=== PATIENT | male | born 1930 | race Caucasian/White ===

== ENCOUNTER 2018-08-27 19:45 | Emergency (ER) | payer OTHER ==
[2018-08-27 20:30] LABS: #Basophils 0.1 thou/uL (0.0-0.2); #Lymphocytes 0.2 thou/uL (1.20-3.40); #Monocytes 0.7 thou/uL (0.11-0.59); #Neutrophils 12.2 thou/uL (1.40-6.50); %Basophils 0.4 % (0.0-1.0); %Eosinophils 0.1 % (0.0-10.0); %Lymphocytes 1.2 % (21.0-51.0); %Monocytes 5.5 % (0.0-10.0); %Neutrophils 92.9 % (42.0-75.0); Mean Corpuscular HGB CONC 31.1 g/dL (32.0-36.0); Mean Corpuscular Hemoglobin 28.2 pg (27.0-31.0); Mean Corpuscular Volume 90.7 fL (78.0-98.0); Mean Platelet Volume 6.6 fL (7.4-10.4); Platelet Count 246 thou/uL (130-400); RBC Distribution Width 13.3 % (11.5-14.5); Red Blood Cell (RBC) Count 3.17 mill/uL (4.70-6.10); White Blood Cell (WBC) Count 13.1 thou/uL (4.8-10.8)
[2018-08-27 20:52] LABS: ALT (SGPT) 12 U/L (8-55); AST (SGOT) 20 U/L (5-34); Albumin 2.7 g/dL (3.4-4.8); Alkaline Phosphatase 104 U/L (40-150); Anion Gap 15 mmol/L (10-20); BUN (Urea Nitrogen) 47 mg/dL (8.4-25.7); Bilirubin, Total 0.6 mg/dL (0.2-1.2); Calc. Creatinine Clearance 0 mL/min (70-130); Calcium 7.7 mg/dL (7.8-10.44); Carbon Dioxide 19 mmol/L (23-31); Chloride 106 mmol/L (98-107); Estimated GFR-MDRD 18; Glucose 126 mg/dL (83-110); Potassium 4.3 mmol/L (3.5-5.1); Protein, Total 5.7 g/dL (5.8-8.1); Sodium 136 mmol/L (136-145)
[2018-08-27] MEDS ORDERED: Sodium Chloride 0.9% 100 ML ONE (21:33)
[2018-08-27] MEDS ORDERED: cefTRIAXone\\ROCEPHIN 1 GM VIAL ONE (21:33)
--- NOTE | 2018-08-27 21:38 | RAD ---
CHEST ONE VIEW 08/27/18 HISTORY: Dyspnea. FINDINGS: No comparison. The cardiac silhouette is magnified by projection. Pulmonary vasculature is unremarkab le. Mediastinum is midline with postoperative changes and aortic calcification. Bibasilar parenchymal opacities are present, partially obscuring the left hemidiaphragm. Upper lobes are free of infiltrate. No pneumothorax. shelter monitor leads overlie the chest. IMPRESSION: Bibasilar infiltrates. Chronicity and cause are not evident. Clinical correlation regarding other sig ns and symptoms of bibasilar pneumonitis is required. Please consider close radiographic followup wit h upright PA and lateral views of the chest. Atherosclerosis. POS: H
[2018-08-27] MEDS ORDERED: Azithromycin 500 MG in Sodium Chloride 0.9% 250 ML 250 ML IVPB SCH (22:30)
--- NOTE | 2018-08-29 22:30 | EKG ---
Test Reason : CP Blood Pressure : / mmHG Vent. Rate : 085 BPM Atrial Rate : 085 BPM P-R Int : 126 ms QRS Dur : 084 ms QT Int : 404 ms P-R-T Axes : 075 013 069 degrees QTc Int : 480 ms Normal sinus rhythm Prolonged QT Abnormal ECG Confirmed by COLLEEN LUIS D.O. ([id number]), brands editor SUKI MACEDO ([id number] on 08/29/2018 10:29:35 PM Referred By: Confirmed By:COLLEEN LUIS D.O.
== END 2018-08-28 00:50 | disposition short-term general hospital (02) ==
LOC: ERS 19:45
DX: J20.9 Acute bronchitis, unspecified (principal); J18.9 Pneumonia, unspecified organism; N17.9 Acute kidney failure, unspecified; R25.1 Tremor, unspecified; I12.9 Hypertensive chronic kidney disease with stage 1 through stage 4 chronic kidney disease, or unspecified chronic kidney disease; N18.9 Chronic kidney disease, unspecified; K21.9 Gastro-esophageal reflux disease without esophagitis; I25.10 Atherosclerotic heart disease of native coronary artery without angina pectoris; E03.9 Hypothyroidism, unspecified; Z79.899 Other long term (current) drug therapy; Z79.82 Long term (current) use of aspirin
CPT/HCPCS: 36415; 71045; 80053; 83605; 84484; 85025; 87804; 93005; 94760; 96365; 96367; J0456; J0696; J7050